=== PATIENT | male | born 1960 | race Caucasian/White ===

== ENCOUNTER → 2022-11-26 | Outpatient (RCR) | payer OTHER ==
[~2022-11-26] MED LIST: FAMO20TA5 PO; GEMF600T3 PO; HCT25T PO; HYDR118S PO; LISI20TA PO; LORA10TA7 PO; MULT-608 PO; OMEP20TA2 PO
== END | disposition home or self-care (01) ==
LOC: CR 11-05 09:57
PROVIDERS: ATTEND Internal Medicine Cardiovascular Disease
DX: Z95.1 Presence of aortocoronary bypass graft (principal)
CPT/HCPCS: 93798

== ENCOUNTER 2022-12-24 08:34 | Outpatient (RCR) | payer OTHER | END 2022-12-26 | disposition home or self-care (01) | LOC: CR 08:34 | PROVIDERS: ATTEND Internal Medicine Cardiovascular Disease | DX: Z29.8 Encounter for other specified prophylactic measures (principal); Z95.1 Presence of aortocoronary bypass graft | CPT/HCPCS: 93798 ==